=== PATIENT | female | born 1980 | race Caucasian/White ===

== ENCOUNTER 2020-02-01 18:48 | Emergency (ER) | payer OTHER ==
[~2020-02-01] VITALS: Ht 167.6 cm; Wt 90.7 kg
[~2020-02-01 18:48] MED LIST: BACTRIM DS TAB1 EACH PO; BENADRYL25 MG PO; NORCO 5-325 TA1 EACH PO
[2020-02-01] MEDS ORDERED: TYLENOL WITH CO1 TA1 PO (20:13)
[2020-02-01 20:20] VITALS: BP 129/75
== END 2020-02-01 20:21 | disposition home or self-care (01) ==
LOC: M.ERS 18:48
DX: S01.511A Laceration without foreign body of lip, initial encounter (principal); S00.03XA Contusion of scalp, initial encounter; S00.12XA Contusion of left eyelid and periocular area, initial encounter; Z98.51 Tubal ligation status; Z90.49 Acquired absence of other specified parts of digestive tract; Z88.0 Allergy status to penicillin; Y08.89XA Assault by other specified means, initial encounter; Y93.89 Activity, other specified; Y92.89 Other specified places as the place of occurrence of the external cause; Y99.8 Other external cause status